=== PATIENT | male | born 1985 | race Caucasian/White ===

== ENCOUNTER 2020-06-05 00:50 | Emergency (ER) | payer OTHER ==
[~2020-06-05] VITALS: Ht 172.7 cm; Wt 127.0 kg
--- NOTE | 2020-06-05 01:10 | NUR ---
biba to bed 04 with steady gait.
[2020-06-05 01:15] VITALS: BP 144/95
[2020-06-05 01:20] VITALS: BP 128/68
--- NOTE | 2020-06-05 01:31 | NUR ---
EKG PERFORMED AT BEDSIDE
[2020-06-05] MEDS ORDERED: LIDOCAINE VISCOUS 2% 20 ML UDC ONE (01:32)
[2020-06-05] MEDS ORDERED: ALUMINUM HYD/MAG/SIMETHICONE 30 ML UDC ONE (01:32)
[2020-06-05] MEDS ORDERED: DICYCLOMINE HCL LIQUID 10 MG/5 ML UDC ONE (01:33)
[2020-06-05] MEDS: DICYCLOMINE HCL LIQUID 20 MG, ALUMINUM HYD/MAG/SIMETHICONE 30 ML, LIDOCAINE VISCOUS 2% ... PO ONE ×3 (01:35)
[2020-06-05 01:43] LABS: BASOPHILS % (AUTO) 0.3 % (0.0-2.0); EOSINOPHILS # (AUTO) 0.1 K/uL (0-0.4); EOSINOPHILS % (AUTO) 0.9 % (0.0-4.0); HEMATOCRIT 46.8 % (36-52); HEMOGLOBIN 15.7 g/dL (12.0-18.0); LYMPHOCYTES # (AUTO) 3.8 K/uL (2.0-11.5); LYMPHOCYTES % (AUTO) 28.8 % (20.5-51.1); MEAN CORPUSCULAR HEMOGLOBIN 29 pg (27-31); MEAN CORPUSCULAR HGB CONC 34 g/dL (33-37); MEAN CORPUSCULAR VOLUME 86.9 fL (80-94); MONOCYTES # (AUTO) 0.8 K/uL (0.8-1.0); MONOCYTES % (AUTO) 6.2 % (1.7-9.3); NEUTROPHILS # (AUTO) 8.5 K/uL (1.8-7.7); NEUTROPHILS % (AUTO) 63.8 % (42.2-75.2); PLATELET COUNT (AUTO) 241 K/uL (140-450); RED BLOOD CELL COUNT(AUTO) 5.38 MIL/uL (4.20-6.10); RED CELL DISTRIBUTION WIDTH 13.5 % (11.6-13.7); WHITE BLOOD COUNT (AUTO) 13.3 K/uL (4.8-10.8)
[2020-06-05 01:59] LABS: ALBUMIN 3.6 g/dL (3.4-5.0); ANION GAP 15.7 (8-16); CARBON DIOXIDE 21.4 mmol/L (21-32); POTASSIUM 3.1 mmol/L (3.5-5.1); TOTAL BILIRUBIN 0.3 mg/dL (0.0-1.0)
--- NOTE | 2020-06-05 02:30 | NUR ---
34 Y/O M BIBA C/O STERNAL CHEST PAIN X 4 YEARS. PT STATES THAT HIS CHEST "HURTS WHEN DRINKING WATER OR EATING." NO C/O OF PAIN DURING ASSESSMENT. PT DENIES PAIN TO RADIATE ANYWHERE. AIRWAY INTACT, RR EVEN AND UNLABORED. PT NOT IN DISTRESS. BED LOCKED AND IN LOWEST POSITION, SIDE RAIL UP X1. WILL CONTINUE TO MONITOR. pmhx: schizophrenia. nka
--- NOTE | 2020-06-05 02:41 | NUR ---
Patient discharged with v/s stable. Written and verbal after care instructions given and explained. Patient alert, oriented and verbalized understanding of instructions. Ambulatory with steady gait. All questions addressed prior to discharge. ID band removed. Patient advised to follow up with PMD. Rx of prilosec given. Patient educated on indication of medication including possible reaction and side effects. Opportunity to ask questions provided and answered.
== END 2020-06-05 02:42 | disposition home or self-care (01) ==
LOC: MED 00:50
DX: K29.70 Gastritis, unspecified, without bleeding (principal); F17.210 Nicotine dependence, cigarettes, uncomplicated; F12.90 Cannabis use, unspecified, uncomplicated
CPT/HCPCS: 36415; 71045; 80053; 83690; 84484; 85025; 93005; 99285; Q0092

== ENCOUNTER 2024-01-18 13:45 | Inpatient (IN) | payer OTHER ==
[~2024-01-18] VITALS: Ht 175.3 cm; Wt 116.1 kg
[2024-01-18] VITALS (9 sets, daily range): BP systolic 99–156; BP diastolic 57–93; PULSE 104–126; RESP 19–20; TEMP 97–98.4; O2SAT 0–98
[2024-01-18] MEDS: NACL 0.9% 1,000 ML IV ONE ×3 (15:10→16:24)
[2024-01-18 15:21] LABS: BASOPHILS % (AUTO) 0.1 % (0.0-2.0); HEMATOCRIT 48.2 % (36-52); LYMPHOCYTES # (AUTO) 0.8 K/uL (2.0-11.5); LYMPHOCYTES % (AUTO) 6.1 % (20.5-51.1); MEAN CORPUSCULAR HEMOGLOBIN 31 pg (27-31); MEAN CORPUSCULAR HGB CONC 35 g/dL (33-37); MEAN CORPUSCULAR VOLUME 88.6 fL (80-94); MONOCYTES % (AUTO) 7.2 % (1.7-9.3); NEUTROPHILS # (AUTO) 11.7 K/uL (1.8-7.7); NEUTROPHILS % (AUTO) 86.6 % (42.2-75.2); PLATELET COUNT (AUTO) 238 K/uL (140-450); RED BLOOD CELL COUNT(AUTO) 5.44 MIL/uL (4.20-6.10); RED CELL DISTRIBUTION WIDTH 13.3 % (11.6-13.7); WHITE BLOOD COUNT (AUTO) 13.5 K/uL (4.8-10.8)
[2024-01-18 15:28] LABS: CALCIUM 8.3 mg/dL (8.5-10.1); CARBON DIOXIDE 12.4 mmol/L (21-32); POTASSIUM 3.4 mmol/L (3.5-5.1)
[2024-01-18 15:43] LABS: CREATINE KINASE, TOTAL 39 U/L (39-308); MAGNESIUM 1.8 mg/dL (1.8-2.4); PHOSPHORUS 4.6 mg/dL (2.5-4.9); THYROID STIMULATING HORMONE 1.67 uIU/mL (0.34-3.74)
[2024-01-18 15:44] LABS: ACETAMINOPHEN < 0.5 ug/ml (10-30); ALCOHOL, BLOOD < 3 mg/dL (<10)
[2024-01-18 16:32] LABS: APPEARANCE,URINE CLEAR (CLEAR); BILIRUBIN,URINE NEGATIVE (NEGATIVE); BLOOD, URINE TRACE-I (NEGATIVE); COLOR,URINE YELLOW (YELLOW); LEUKOCYTE ESTERASE ,URINE NEGATIVE (NEGATIVE); NITRITE, URINE NEGATIVE (NEGATIVE); PROTEIN,URINE 1+ (NEGATIVE); UGLUCOSE 3+ (NEGATIVE); UROBILINOGEN,URINE 0.2 EU/dL (0.2 - 1)
[2024-01-18 16:45] LABS: AMPHETAMINE, URINE NEGATIVE ng/ml (NEG <=1000); BARBITURATE, URINE NEGATIVE ng/ml (NEG <=200); BENZODIAZEPINE, URINE NEGATIVE ng/mL (NEG <=200); CANNABINOID, URINE POSITIVE ng/mL (NEG <=50); COCAINE, URINE NEGATIVE ng/mL (NEG <=300); OPIATE, URINE NEGATIVE ng/mL (NEG <=2000); PHENCYCLIDINE SCREEN,URINE NEGATIVE ng/mL (NEG <=25)
[2024-01-18 16:47] LABS: BACTERIA,URINE FEW /HPF (None Seen); RBC,URINE 0-5 /HPF (0-5); SQUAMOUS EPITHELIAL CELL,UR 0-3 (FEW) /LPF (0-3 (FEW)); WBC,URINE 0-5 /HPF (0-5)
[2024-01-18] MEDS: INSULIN REGULAR, HUMAN 100 UNIT in NACL 0.9% 100 ML IV ONE (17:00)
[2024-01-18] MEDS ORDERED: ACETAMINOPHEN 325 MG TAB PO PRN (17:10)
[2024-01-18] MEDS ORDERED: ALBUTEROL 0.083% 2.5 MG/3 ML NEBU INH PRN (17:10)
[2024-01-18] MEDS ORDERED: ONDANSETRON 4 MG/2 ML VIAL IVP PRN (17:10)
[2024-01-18] MEDS ORDERED: DEXTROSE 50% 50 ML SYR IVP PRN (17:10)
[2024-01-18] MEDS ORDERED: NACL 0.9% 1,000 ML IV SCH (17:10)
[2024-01-18] MEDS: POTASSIUM CHL 20 MEQ/D5-1/2NS 1,000 ML IV ONE (17:33)
[2024-01-18 17:48] LABS: ANION GAP 26.6 (8-16); CALCIUM 7.2 mg/dL (8.5-10.1); CARBON DIOXIDE 11.4 mmol/L (21-32); CREATININE 1.1 mg/dL (0.6-1.3)
[2024-01-18] MEDS: BLOOD GLUCOSE MONITORING 1 DEV DEV FS SCH (18:07)
[2024-01-18] MEDS: INSULIN REGULAR, HUMAN 100 UNIT in NACL 0.9% 100 ML IV SCH (19:02)
[2024-01-18] MEDS: HYDROmorphone PFS 2 MG/ML SYR IVP PRN (19:05)
[2024-01-18] MEDS: NACL 0.9% 1,000 ML IV SCH (19:17)
[2024-01-18] MEDS: DEXT 5% / NACL 0.45% 1,000 ML IV SCH (20:16)
[2024-01-19] VITALS (26 sets, daily range): BP systolic 109–169; BP diastolic 55–97; PULSE 106–132; RESP 14–25; TEMP 97.2–98.7; O2SAT 92–98
[2024-01-19 00:28] LABS: ANION GAP 20.1 (8-16); CALCIUM 8.3 mg/dL (8.5-10.1); CARBON DIOXIDE 13.6 mmol/L (21-32)
[2024-01-19 00:30] LABS: MAGNESIUM 1.6 mg/dL (1.8-2.4); POTASSIUM 2.7 mmol/L (3.5-5.1)
[2024-01-19 00:31] LABS: PHOSPHORUS 1.1 mg/dL (2.5-4.9)
[2024-01-19] MEDS: KCL 20 MEQ IN 100 mL PREMIX 200 ML IV PRN (00:55)
[2024-01-19 04:17] LABS: BASOPHILS % (AUTO) 0.1 % (0.0-2.0); HEMATOCRIT 44.7 % (36-52); HEMOGLOBIN 15.6 g/dL (12.0-18.0); LYMPHOCYTES # (AUTO) 0.7 K/uL (2.0-11.5); LYMPHOCYTES % (AUTO) 4.5 % (20.5-51.1); MEAN CORPUSCULAR HEMOGLOBIN 31 pg (27-31); MEAN CORPUSCULAR HGB CONC 35 g/dL (33-37); MEAN CORPUSCULAR VOLUME 87.8 fL (80-94); MONOCYTES # (AUTO) 1.7 K/uL (0.8-1.0); MONOCYTES % (AUTO) 11.5 % (1.7-9.3); NEUTROPHILS # (AUTO) 12.6 K/uL (1.8-7.7); NEUTROPHILS % (AUTO) 83.9 % (42.2-75.2); PLATELET COUNT (AUTO) 253 K/uL (140-450); RED BLOOD CELL COUNT(AUTO) 5.09 MIL/uL (4.20-6.10); RED CELL DISTRIBUTION WIDTH 13.6 % (11.6-13.7)
[2024-01-19 04:59] LABS: ANION GAP 15.7 (8-16); CALCIUM 8.2 mg/dL (8.5-10.1); CREATININE 0.8 mg/dL (0.6-1.3)
[2024-01-19 05:03] LABS: MAGNESIUM 1.6 mg/dL (1.8-2.4); PHOSPHORUS 1.4 mg/dL (2.5-4.9)
[2024-01-19 05:06] LABS: POTASSIUM 2.7 mmol/L (3.5-5.1)
[2024-01-19 09:01] LABS: ANION GAP 15.1 (8-16); CALCIUM 8.3 mg/dL (8.5-10.1); CARBON DIOXIDE 18.5 mmol/L (21-32); CREATININE 0.7 mg/dL (0.6-1.3)
[2024-01-19 09:06] LABS: POTASSIUM 2.6 mmol/L (3.5-5.1)
[2024-01-19] MEDS: SODIUM PHOS / POTASSIUM PHOS 1 PKT PDR PO SCH (11:25)
[2024-01-19] MEDS: POTASSIUM CHLORIDE 10 MEQ TABER PO SCH ×2 (11:25→13:57)
[2024-01-19] MEDS: MAG SULF 2000 MG/WATER PREMIX 50 ML IV PRN (11:26)
[2024-01-19] MEDS ORDERED: POTASSIUM CHLORIDE 20 MEQ, LIDOCAINE MPF 1% 25 MG in NACL 0.9% 250 ML IV SCH (12:00)
[2024-01-19] MEDS ORDERED: MAGNESIUM SULFATE 50% 1,000 MG in NACL 0.9% 50 ML IV SCH (13:00)
[2024-01-19] MEDS: MAGNESIUM SULFATE 50% 1,000 MG in NACL 0.9% 50 ML IV SCH (13:59)
[2024-01-19] MEDS: POTASSIUM CHLORIDE 20 MEQ, LIDOCAINE MPF 1% 25 MG in NACL 0.9% 250 ML IV SCH (16:15)
[2024-01-19 16:16] LABS: ANION GAP 20.8 (8-16); CALCIUM 7.8 mg/dL (8.5-10.1); CARBON DIOXIDE 15.8 mmol/L (21-32); CREATININE 0.7 mg/dL (0.6-1.3); POTASSIUM 3.6 mmol/L (3.5-5.1)
[2024-01-19 20:54] LABS: ANION GAP 18.1 (8-16); CALCIUM 8.1 mg/dL (8.5-10.1); CARBON DIOXIDE 17.5 mmol/L (21-32); CREATININE 0.8 mg/dL (0.6-1.3); POTASSIUM 3.6 mmol/L (3.5-5.1)
[2024-01-19] MEDS ORDERED: INSULIN LANTUS 100 UNITS/ML 10 ML VIAL SUBQ SCH (21:00)
[2024-01-19 21:05] LABS: PHOSPHORUS 2.1 mg/dL (2.5-4.9)
[2024-01-20] VITALS (21 sets, daily range): BP systolic 113–155; BP diastolic 70–109; PULSE 84–119; RESP 14–24; TEMP 97.2–99.4; O2SAT 94–98
[2024-01-20 00:40] LABS: ANION GAP 14.1 (8-16); CALCIUM 7.9 mg/dL (8.5-10.1); CARBON DIOXIDE 20.8 mmol/L (21-32); CREATININE 0.6 mg/dL (0.6-1.3)
[2024-01-20 00:44] LABS: MAGNESIUM 1.9 mg/dL (1.8-2.4); PHOSPHORUS 1.6 mg/dL (2.5-4.9)
[2024-01-20 00:49] LABS: POTASSIUM 2.9 mmol/L (3.5-5.1)
[2024-01-20] MEDS: POTASSIUM CHLORIDE 10 MEQ TABER PO ONE ×2 (01:30→01:31)
[2024-01-20 04:25] LABS: BASOPHILS % (AUTO) 0.5 % (0.0-2.0); EOSINOPHILS % (AUTO) 0.1 % (0.0-4.0); HEMATOCRIT 43.6 % (36-52); HEMOGLOBIN 15.3 g/dL (12.0-18.0); LYMPHOCYTES # (AUTO) 1.4 K/uL (2.0-11.5); LYMPHOCYTES % (AUTO) 14.2 % (20.5-51.1); MEAN CORPUSCULAR HEMOGLOBIN 31 pg (27-31); MEAN CORPUSCULAR HGB CONC 35 g/dL (33-37); MEAN CORPUSCULAR VOLUME 87.2 fL (80-94); MONOCYTES # (AUTO) 1.6 K/uL (0.8-1.0); MONOCYTES % (AUTO) 16.2 % (1.7-9.3); NEUTROPHILS # (AUTO) 6.7 K/uL (1.8-7.7); PLATELET COUNT (AUTO) 219 K/uL (140-450); RED CELL DISTRIBUTION WIDTH 13.5 % (11.6-13.7); WHITE BLOOD COUNT (AUTO) 9.7 K/uL (4.8-10.8)
[2024-01-20 04:39] LABS: ANION GAP 12.2 (8-16); CARBON DIOXIDE 23.2 mmol/L (21-32); CREATININE 0.6 mg/dL (0.6-1.3); POTASSIUM 3.4 mmol/L (3.5-5.1)
[2024-01-20 04:43] LABS: MAGNESIUM 1.9 mg/dL (1.8-2.4)
[2024-01-20] MEDS ORDERED: POTASSIUM CHLORIDE 10 MEQ TABER PO PRN (08:10)
[2024-01-20 08:24] LABS: CALCIUM 7.7 mg/dL (8.5-10.1); CARBON DIOXIDE 21.2 mmol/L (21-32); CREATININE 0.6 mg/dL (0.6-1.3); POTASSIUM 3.2 mmol/L (3.5-5.1)
[2024-01-20 08:40] LABS: MAGNESIUM 1.9 mg/dL (1.8-2.4); PHOSPHORUS 1.6 mg/dL (2.5-4.9)
[2024-01-20] MEDS: SODIUM PHOS / POTASSIUM PHOS 1 PKT PDR PO SCH (09:42)
[2024-01-20] MEDS: POTASSIUM CHLORIDE 10 MEQ TABER PO SCH (09:42)
[2024-01-20] MEDS: INSULIN LANTUS 100 UNITS/ML 10 ML VIAL SUBQ SCH (10:09)
[2024-01-20] MEDS: BLOOD GLUCOSE MONITORING 1 DEV DEV FS SCH (10:26)
[2024-01-20] MEDS ORDERED: POTASSIUM CHLORIDE 40 MEQ, LIDOCAINE 1% 25 MG in NACL 0.9% 250 ML IV SCH (10:30)
[2024-01-20] MEDS: POTASSIUM PHOSPHATE 30 MM in NACL 0.9% 500 ML IV SCH (11:06)
[2024-01-20 12:08] LABS: ANION GAP 13.1 (8-16); CALCIUM 7.9 mg/dL (8.5-10.1); CARBON DIOXIDE 23.2 mmol/L (21-32); CREATININE 0.6 mg/dL (0.6-1.3); POTASSIUM 3.3 mmol/L (3.5-5.1)
[2024-01-20] MEDS: INSULIN LISPRO SLIDING SCALE 100 UNITS/ML VIAL SUBQ PRN (12:46)
[2024-01-20] MEDS ORDERED: BLOO1KIT MC (14:31)
[2024-01-20] MEDS ORDERED: METF-1197 PO (14:31)
[2024-01-20] MEDS ORDERED: HUMSLIDE SUBQ (14:31)
[2024-01-20] MEDS ORDERED: LANC1KIT MC (14:31)
[2024-01-20] MEDS ORDERED: LANTUS SUBQ (14:31)
[2024-01-20 15:46] LABS: BASOPHILS % (AUTO) 0.5 % (0.0-2.0); EOSINOPHILS % (AUTO) 0.3 % (0.0-4.0); HEMATOCRIT 41.3 % (36-52); HEMOGLOBIN 14.7 g/dL (12.0-18.0); LYMPHOCYTES # (AUTO) 1.4 K/uL (2.0-11.5); MEAN CORPUSCULAR HEMOGLOBIN 31 pg (27-31); MEAN CORPUSCULAR HGB CONC 36 g/dL (33-37); MEAN CORPUSCULAR VOLUME 87.6 fL (80-94); MONOCYTES # (AUTO) 1.1 K/uL (0.8-1.0); MONOCYTES % (AUTO) 16.4 % (1.7-9.3); NEUTROPHILS # (AUTO) 4.3 K/uL (1.8-7.7); NEUTROPHILS % (AUTO) 62.8 % (42.2-75.2); PLATELET COUNT (AUTO) 186 K/uL (140-450); RED BLOOD CELL COUNT(AUTO) 4.71 MIL/uL (4.20-6.10); RED CELL DISTRIBUTION WIDTH 13.5 % (11.6-13.7); WHITE BLOOD COUNT (AUTO) 6.9 K/uL (4.8-10.8)
[2024-01-20 15:57] LABS: ANION GAP 11.6 (8-16); CALCIUM 7.9 mg/dL (8.5-10.1); CARBON DIOXIDE 24.9 mmol/L (21-32); CREATININE 0.7 mg/dL (0.6-1.3); POTASSIUM 3.5 mmol/L (3.5-5.1)
[2024-01-20 16:11] LABS: INR 1.02 (0.8-1.2); PARTIAL THROMBOPLASTIN TIME 27.4 secs (22-35.6); PROTHROMBIN TIME 10.7 secs (10.8-13.4)
[2024-01-20] MEDS ORDERED: LOSA-272 PO (16:37)
[2024-01-20] MEDS ORDERED: PANT20EC PO (16:39)
[2024-01-20] MEDS ORDERED: RISP2TAB52 PO (16:41)
== END 2024-01-20 17:45 | disposition home or self-care (01) | DRG 638 ==
LOC: MED 13:45 → MTU 17:13 → MIC 17:54
PROVIDERS: ADMIT Family Medicine; ATTEND Family Medicine
DX: E11.10 Type 2 diabetes mellitus with ketoacidosis without coma (principal); R65.10 Systemic inflammatory response syndrome (SIRS) of non-infectious origin without acute organ dysfunction; E83.39 Other disorders of phosphorus metabolism; E87.6 Hypokalemia; E83.42 Hypomagnesemia; F11.90 Opioid use, unspecified, uncomplicated; F20.9 Schizophrenia, unspecified; Z79.899 Other long term (current) drug therapy
CPT/HCPCS: 36415; 71045; 80048; 80305; 81001; 82009; 82550; 82803; 82948; 83036; 83735; 84100; 84439; 84443; 84484; 85025; 85610; 85730; 87081; 93005; 96360; 96361; 99291; G0480; G0482; J1170; J1815; J2001; J3475; J3480; J7030